=== PATIENT | male | born 1985 | race Caucasian/White ===

== ENCOUNTER 2023-10-19 13:14 | Emergency (ER) | payer BC, SELFPAY ==
[2023-10-19 13:21] VITALS: BP 143/82; PULSE 107; RESP 16; TEMP 36.4; O2SAT 98
--- NOTE | 2023-10-19 15:17 | XRR_ITS ---
PROCEDURE INFORMATION: Exam: XR Left Hand Exam date and time: 10/19/2023 3:39 PM Age: 37 years old Clinical indication: Injury or trauma; Other: Lac to first finger; Laceration; Left; Index finger TECHNIQUE: Imaging protocol: Radiologic exam of the left hand. Views: 3 or more views. COMPARISON: No relevant prior studies available. FINDINGS: Bones/joints: Normal. Soft tissues: Normal. XR/XR hand LT min 3V* [id number] IMPRESSION: No acute findings.
[2023-10-19] MEDS: tetanus-dipt-pertussis 0.5 mL SDV IM (15:29)
--- NOTE | 2023-10-19 16:05 | W.ED.WOUNDLC ---
Documented by User: [email or web address] Lal 10/19/23 16:11 HPI - Wound/Laceration General: Chief Complaint: Wound/Laceration Stated Complaint: Finger lac left hand Time Seen by Provider: 10/19/23 14:45 Source: patient Mode of arrival: ambulatory Limitations: no limitations History of Present Illness: Patient is a 37-year-old male who presents to the emergency department complaining of left index finger laceration onset just prior to arrival. He states he cut it on a tire cutting machine, bleeding controlled on arrival with direct pressure. His tetanus is not up-to-date, will update here. He is denying any distal neurovascular deficits, and denies any underlying bony or joint pain. The laceration is to the ventral aspect of the distal left index finger, and does not involve the nail. He has good strength and pulses still in his hand. There is no hand or wrist pain. Onset (ago): minute(s) Extremity Location: Left: hand Place: work Patient tetanus UTD: No Context: accidental Associated symptoms: Reports no associated symptoms; Denies chills, fever(s), nausea or vomiting Treatments prior to arrival: bandage Review of Systems General: Reports: 10 or more systems reviewed and unremarkable except in HPI and below Const: Denies: fever(s), chills or fatigue Eyes: Denies: change in vision ENMT: Denies: throat pain, ear or mastoid pain or nasal discharge Card: Denies: chest pain, palpitations, swelling of feet/ankles or lightheadedness Resp: Denies: dyspnea, productive cough or wheezing GI: Denies: abdominal pain, nausea, vomiting, diarrhea or constipation : Denies: flank pain, difficulty urinating, dysuria or urinary frequency Musc: Denies: neck pain, back pain or joint pain Skin/Breast: Reports: new lesions (Left index finger laceration); Denies: rash Neuro: Denies: headache(s), numbness in extremities or weakness in extremities Physical Exam Const: COMMON NORMALS: no acute distress, patient oriented x3, no limitations, healthy appearing and alert GENERAL APPEARANCE: cooperative and comfortable HENMT: COMMON NORMALS: normocephalic, atraumatic and Normal external nose present HEAD & SCALP: normocephalic and atraumatic FACE & SINUS: normal facial exam NOSE: Normal external nose present Eye: COMMON NORMALS: EOMs intact bilaterally and conjunctivae normal CONJUNCTIVA: Yes conjunctivae normal Neck/C-Spine: COMMON NORMALS: full ROM Resp: COMMON NORMALS: normal respiratory effort, No retractions, No use of accessory muscles and clear to auscultation bilaterally AUSCULTATION: clear to auscultation bilaterally Cardio: COMMON NORMALS: regular rate and regular rhythm RATE: regular rate RHYTHM: regular rhythm Extremity: NARRATIVE EXTREMITY EXAM: Left index finger is nontender to palpation. No malalignment or distal neurovascular changes. Pulses intact to left hand. Neuro: COMMON NORMALS: patient oriented x3, moves all extremities, no focal motor deficits and no sensory deficits noted SENSORIUM/ORIENTATION: Yes alert Psych: COMMON NORMALS: mental status grossly normal Skin: TRAUMA: laceration (Ventral aspect of the distal left index finger, approximately 3 cm) linear, contaminated, involves subcutaneous tissue, motor nerve function intact and sensation intact; not actively bleeding and no foreign bodies present Procedures Laceration Laceration 1: Site: hand Side (If applicable): left Size (cm): 3 Description: linear and contaminated Depth: simple, single layer Local Anesthetic: lidocaine 2% Amount of anesthesia used (mL): 6 Pre-repair: wound explored, irrigated extensively and deep structures intact Skin layer closed with: nylon Size (cm): 5-0 Number of sutures: 3 Technique: simple, interrupted Nerve Block Nerve Block 1: Time out performed: No Local Anesthetic: lidocaine 2% Amount of anesthesia used (mL): 6 Side: left Nerve Blocks: digital Procedure Successful: Yes Patient Tolerated Procedure: well Complications: pain with procedure Course Vital Signs: Vital signs: Vital Signs Temperature 97.6 F 10/19/23 13:21 Pulse Rate 107 H 10/19/23 13:21 Respiratory Rate 16 10/19/23 13:21 Blood Pressure 143/82 10/19/23 13:21 Pulse Oximetry 98 10/19/23 13:21 MDM - Wound/Laceration Medical Decision Making Patient presented with a laceration at work. X-ray did not demonstrate any acute underlying findings. Laceration did appear contaminated as he cut himself on a tile cutter, this was irrigated quite extensively with Betadine and saline. Digital block was performed prior to this, and 3 sutures were placed in simple interrupted fashion, see procedure note. The laceration was left somewhat open so as to not cause discomfort with swelling, and was draped appropriately prior to discharge. He is prescribed topical bacitracin as well as an oral antibiotic to take, and will return with any new or worsening signs or symptoms of infection. Patient will take Tylenol and ibuprofen for pain and follow-up with primary care as needed. Lab Data Radiology Impressions Hand X-Ray 10/19/23 15:17 IMPRESSION: No acute findings. All radiology interpretation(s) finalized by discharge Discharge Plan Discharge Patient Disposition: Home Clinical Impression: Finger laceration Qualifiers: Encounter type: initial encounter Finger: index finger Damage to nail status: without damage Foreign body presence: without foreign body Laterality: left Qualified Code(s): S61.211A - Laceration without foreign body of left index finger without damage to nail, initial encounter Condition: Stable Prescriptions: New cephalexin 500 mg capsule 500 mg PO BID 7 Days Qty: 14 0RF mupirocin 2 % ointment 1 applic topical BID Qty: 15 0RF Discharge Orders: Discharge ED (Routine); Ordered 10/19/23 Ordered By: Jace Mooney Discharge Diet: Usual diet Discharge Activity: Limit activity as instructed Patient Instructions: Laceration (ED), Wound Care (General) Activity Restrictions/Additional Instructions: Antibiotics as prescribed. Tylenol or ibuprofen for any pain. Ice. Sutures out in 7 days. Do not soak hand for the first 48 hours, afterwards you may dab clean with soap and water. Please keep wound dry at all times when not cleaning. Monitor for any worsening signs or symptoms such as infection or swelling. Follow-up with primary care as needed. 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 X-ray did not demonstrate any acute underlying findings. Laceration did appear contaminated as he cut himself on a tile cutter, this was irrigated quite extensively with Betadine and saline. Digital block was performed prior to this, and 3 sutures were placed in simple interrupted fashion, see procedure note. The laceration was left somewhat open so as to not cause discomfort with swelling, and was draped appropriately prior to discharge. He is prescribed topical bacitracin as well as an oral antibiotic to take, and will return with any new or worsening signs or symptoms of infection. Patient will take Tylenol and ibuprofen for pain and follow-up with primary care as needed. Chart reviewed Lab Data Radiology Impressions Hand X-Ray 10/19/23 15:17 IMPRESSION: No acute findings. Discharge Plan Discharge Patient Disposition: Home Clinical Impression: Finger laceration Qualifiers: Encounter type: initial encounter Finger: index finger Damage to nail status: without damage Foreign body presence: without foreign body Laterality: left Qualified Code(s): S61.211A - Laceration without foreign body of left index finger without damage to nail, initial encounter Condition: Stable Prescriptions: New cephalexin 500 mg capsule 500 mg PO BID 7 Days Qty: 14 0RF mupirocin 2 % ointment 1 applic topical BID Qty: 15 0RF Discharge Orders: Discharge ED (Routine); Ordered 10/19/23 Ordered By: Jace Mooney Discharge Diet: Usual diet Discharge Activity: Limit activity as instructed Patient Instructions: Laceration (ED), Wound Care (General) Activity Restrictions/Additional Instructions: Antibiotics as prescribed. Tylenol or ibuprofen for any pain. Ice. Sutures out in 7 days. Do not soak hand for the first 48 hours, afterwards you may dab clean with soap and water. Please keep wound dry at all times when not cleaning. Monitor for any worsening signs or symptoms such as infection or swelling. Follow-up with primary care as needed. 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
[2023-10-19] MEDS: lidocaine 2% INJ 20 mL INJECTION (16:06)
[2023-10-19] MEDS: bacitracin ointment Pkt 1 EACH TOPICAL (16:07)
== END 2023-10-19 16:07 | disposition home or self-care (01) ==
PROVIDERS: Emergency Provider Physician Assistant
DX: S61.211A Laceration without foreign body of left index finger without damage to nail, initial encounter (principal); W31.89XA Contact with other specified machinery, initial encounter; Z23 Encounter for immunization
CPT/HCPCS: 12042; 73130; 90471; 90715; 99283